=== PATIENT | male | born 2000 | race African-American/Black ===

== ENCOUNTER 2021-06-01 14:59 | Emergency (ER) | payer SELFPAY ==
[2021-06-01] MEDS ORDERED: Ondansetron ODT 4 MG TAB ONE (15:24)
[2021-06-01] MEDS ORDERED: Ibuprofen 200 MG TAB ONE (15:36)
[2021-06-01] MEDS ORDERED: Acetaminophen 325 MG TAB ONE (15:36)
== END 2021-06-01 17:00 | disposition home or self-care (01) ==
LOC: NAV ERS 14:59
DX: B34.9 Viral infection, unspecified (principal); R11.0 Nausea; F17.200 Nicotine dependence, unspecified, uncomplicated
CPT/HCPCS: 71045; 87804; Q0162

== ENCOUNTER 2021-10-10 04:35 | Emergency (ER) | payer SELFPAY ==
[2021-10-10] MEDS ORDERED: Acetaminophen 325 MG TAB ONE (04:58)
[2021-10-10] MEDS ORDERED: Ondansetron ODT 4 MG TAB ONE (04:58)
== END 2021-10-10 05:08 | disposition home or self-care (01) ==
LOC: NAV ERS 04:35
DX: B34.9 Viral infection, unspecified (principal); Z20.822 Contact with and (suspected) exposure to COVID-19; F17.210 Nicotine dependence, cigarettes, uncomplicated
CPT/HCPCS: 99283; Q0162; U0003; U0005